=== PATIENT | male | born 1940 | race Two or more races ===

== ENCOUNTER → 2024-10-11 | Outpatient (CLI) | payer MEDICARE, MEDICAID, SELFPAY ==
--- NOTE | 2024-10-11 08:00 | XR_ITS ---
EXAMINATION: PET/CT FUSION SKULL TO THIGH EXAM DATE AND TIME: October 11, 2024 0848 hrs. Comparison March 11, 2024 Indications: Diagnosis prostate cancer post treatment restaging CTDI:vol (mGy) 7.56 DLP: (mGycm) 690.27 PROCEDURE: 15.97 mCi FDG was administered intravenously To allow for distribution and uptake of radiotracer, the patient was allowed to rest quietly in a shielded room. Imaging was performed on an integrated 16-slice PET/CT scanner, with scanning from the skull base to the mid thigh. Serum blood glucose at the time of the injection was measured 129 mg/dL. CT scanning was performed without oral or intravenous contrast material. FINDINGS: Head and Neck: There is no hang hypermetabolism in the neck. The visualized portions of the brain are normal in appearance on CT. Chest: There is no hang hypermetabolism in the chest. There are no pulmonary nodules. Abdomen and Pelvis: Hypermetabolic 16mm left common iliac lymph node Hypermetabolic 27 mm left common iliac lymph node Right urostomy Musculoskeletal: Marrow uptake is within normal range. IMPRESSION: No current mediastinal hypermetabolic lymphadenopathy Enlarging hypermetabolic left common iliac lymph nodes compared with March 11, 2024
[2024-10-11 10:47] LABS: Basophils % (Auto) 1 % (0-2.5); Eosinophils # (Auto) 0.2 Thou/mm3 (0.0-0.5); Eosinophils % (Auto) 2 % (0-10); Hematocrit 41.4 % (41.0-53.0); Hemoglobin 13.6 g/dL (13.5-16.0); Immature Granulocytes % (Auto) 0 % (0-0); Immature Granulocytes Auto 0.02 Thou/mm3 (0.00-0.00); Lymphocytes # (Auto) 2.8 Thou/mm3 (1.0-4.8); Lymphocytes % (Auto) 33 % (10-50); Mean Corpuscular HGB Conc 32.9 g/dl (31.0-37.0); Mean Corpuscular Hemoglobin 27.4 pg (25.0-35.0); Mean Corpuscular Volume 84 fL (80-100); Monocytes # (Auto) 0.5 Thou/mm3 (0.0-0.8); Monocytes % (Auto) 6 % (0-12); Neutrophils # (Auto) 4.9 Thou/mm3 (1.8-7.7); Neutrophils % (Auto) 58 % (37-80); Nucleated Red Blood Cell % 0 /100 WBC (0); Platelet Count 277 Thou/mm3 (140-440); RDW Standard Deviation 42.8 fL (35.1-43.9); Red Blood Count 4.96 Miln/mm3 (4.50-5.90); White Blood Count 8.4 Thou/mm3 (3.8-10.6)
[2024-10-11 10:54] LABS: Prostate Specific Antigen < 0.10 ng/mL (0-4.00)
[2024-10-11 10:57] LABS: Alanine Aminotransferase 23 U/L (10-49); Albumin, Serum 4.5 gm/dL (3.4-4.8); Albumin/Globulin Ratio 1.6 (1.2-2.2); Alkaline Phosphatase 117 U/L (46-116); Anion Gap 6 (7-16); Aspartate Amino Transferase 21 U/L (0-34); BUN/Creatinine Ratio 20 Ratio (12-20); Bilirubin,Total 0.6 mg/dL (0.3-1.2); Blood Urea Nitrogen 24 mg/dL (9-23); Calcium 9.3 mg/dL (8.3-10.6); Calcium (Corrected) 9.3 mg/dL (8.5-10.1); Chloride 104 mMol/L (98-107); Creatinine (Component) 1.2 mg/dL (0.6-1.3); Globulin 2.9 gm/dL (2.3-3.5); Glucose 110 mg/dL (74-106); Osmolality,Calculated 289 (275-295); Potassium 4.3 mMol/L (3.4-5.1); Sodium 143 mMol/L (136-145); Total Protein 7.4 gm/dL (5.7-8.2); eGFR 59 See Note
== END | disposition home or self-care (01) ==
LOC: CDIM 07:57 → COPL 09:24 → SCTO 09:24
PROVIDERS: PCP Nurse Practitioner; Referring Provider Internal Medicine Hematology & Oncology; Visit Provider Radiology Diagnostic Radiology
DX: R59.0 Localized enlarged lymph nodes (principal); C61 Malignant neoplasm of prostate
CPT/HCPCS: 36415; 78815; 80053; 84153; 85025; A9552

== ENCOUNTER 2024-10-12 10:15 | Outpatient (RCR) | payer MEDICARE, MEDICAID, SELFPAY ==
--- NOTE | 2024-10-18 09:09 | CTCFLWUP_ITS ---
Patient: THEODORE TORRES : 1940 Page 9 of 11 FOLLOW UP NOTE DATE OF SERVICE: 10/12/2024 NAME: THEODORE TORRES ACCOUNT: [id number] : 1940 AGE: 84 INTERVAL HISTORY: ONCOLOGY HISTORY: DIAGNOSIS: Malignant neoplasm of prostate [ICD10] C61 High-grade, T1, invasive papillary urothelial carcinoma, non-muscle invasie. S/p TURBT and partial resection (05/22/2022) History of Yasmin score 6 prostatic adenocarcinoma (03/07/2014). S/p radiation therapy to the prostate (04/19/2014 - 06/13/2014) Mr. Torres had 7200 cGy radiation therapy in 40 fractions. No history of cigarette smoking or alcohol abuse. DATE OF DIAGNOSIS: 05/22/2022 STAGE/TNM: Stage 1 [id number] TREATMENT HISTORY: Care?Plan Start?Date Cycle Day Intent Pembrolizumab?alone 09/04/2022 1 21 Palliative HISTORY OF PRESENT ILLNESS: Theodore Torres is a 84-year-old S[place] speaking male with history of hypertension has the following oncology history. 04/04/2022: Mr. Torres had urinalysis which showed 3+ hematuria. Cytology showed many malignant cells. 05/06/2022: Patient had cystoscopy. Large papillary left lateral and posterior bladder wall tumor was noted. 05/22/2022: TURBT?again a large tumor was noted in the bladder. A large part of the tumor was resected out. However complete resection was not possible. 07/16/2022: MRI of the abdomen and pelvis with and without contrast? 04/09/2023: Patient had cystectomy done at [facility]. 04/25/2023: Mr. Torres had CT angiogram for shortness of breath. He did not show any pulmonary embolism. However it did show fluid collection adjacent to esophagus versus a paraesophageal lymph node. 08/04/2023: CT scan of the abdomen and pelvis with contrast 09/25/2023: PET/CT scan 10/08/2023: CT scan of the abdomen and pelvis with IV contrast 02/16/2024: CT scan of the chest abdomen and pelvis with IV contrast 02/16/2024: CT scan of the chest abdomen and pelvis with IV contrast 03/11/2024: PET/CT scan 04/13/2024: CT-guided biopsy of the left common iliac lymph node? OTHER MEDICAL HISTORY/CONDITIONS: HTN Hyperlipidemia Prostate cancer- dx 2013 Bladder cancer - 2021 Ureteral dilitation; transuretheral resection of bladder tumor - 05/22/2022 Biopsy bladder tumor - 05/07/2022 Gray cataract surgery - 2018 Cholecyctectomy - 2013 Left rotator cuff repair - 18ys ago Umbilical hernia repair - 2007 Left rotator cuff repair - 18ys ago FAMILY HISTORY: Patient?denies?family?cancer?history. 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 Tobacco?Use:?Denies ETOH?Use:?Denies Drug?Note:?Denies Social History Note:?Lives with and dtr MEDICATIONS: 1. aspirin - 81 mg 1 tab Daily 2. Brilinta - 90 mg 1 tab Twice a Day 3. bumetanide - 0.5 mg 1 tab Daily 4. carvedilol - 3.125 mg 1 tab Twice a Day 5. ezetimibe - 10 mg 1 tab Daily 6. Lax Stool Softener With Senna - 8.6-50 mg 2 tab 2 tabs nightly to keep regular 7. magnesium citrate - 100 mL Daily 8. pantoprazole - 40 mg 1 Daily Medications Last Reconciled by Diana Dasilva MA on 10/12/2024 ALLERGIES: Penicillins; codeine sulfate REVIEW OF SYSTEMS: A complete 14-point review of systems was performed and is negative except as noted in interval history. PHYSICAL EXAMINATION: VITAL SIGNS: Temperature?98.9, B/P?130/67, Oxygen?Saturation?93% Weight?171?lbs PAIN: 0 - No pain GENERAL APPEARANCE: Appears well, in no apparent distress, appropriately interactive. HEENT: Normocephalic, no temporal wasting, normal conjunctiva, no scleral icterus, normal hearing, lips without lesions, neck normal range of motion. CARDIOVASCULAR: Not assessed. PULMONARY: Normal respiratory effort, no respiratory distress or use of accessory muscles, speaking in full sentences, no tachypnea. EXTREMITIES: No pedal edema or cyanosis. SKIN: Normal skin appearance. NEUROLOGIC: Alert and oriented x4. PSHYCHIATRIC: Appropriate affect, mood normal, behavior normal, intact thought and speech. LABORATORY DATA: I have personally reviewed and interpreted each of the patient?s relevant lab tests, abnormal findings are below: Date 10/11/24 ??GLUCOSE,RANDOM?(mg/dL) 110?H ??BLOOD?UREA?NITROGEN?(mg/dL) 24?H ??CREATININE?(mg/dL) 1.20 ??SODIUM?(mmol/L) 143 ??POTASSIUM?(mmol/L) 4.3 ??CHLORIDE?(mmol/L) 104 ??CrCl?(CandG)?(ml/min) 48.19 ??AST/SGOT?(Unit/L) 21 ??ALT/SGPT?(Unit/L) 23 ??ALKALINE?PHOSPHATASE?(Unit/L) 117?H ??BILIRUBIN,?TOTAL?(mg/dL) 0.6 ??PROTEIN?TOTAL?(gm/dl) 7.4 ??ALBUMIN,?SERUM?(gm/dl) 4.5 ??GLOBULIN?(gm/dl) 2.9 ??ALBUMIN/GLOBULIN?RATIO 1.6 ??CALCIUM,?SERUM?(mg/dL) 9.3 ??CALCIUM?SERUM?(CORRECTED)?(mg/dL) 9.3 ASSESSMENT/PLAN: 1. Biopsy of the left common iliac lymph node is nondiagnostic as documented above. 2. PET/CT scan done on 03/11/2024 showed no significant change in the hypermetabolic hilar and left common iliac lymphadenopathy compared to September 25, [address] scan of the chest abdomen pelvis done on 02/16/2024 showed left lateral para-aortic lymphadenopathy as documented above. 4. Biopsy of the abdominal lymph nodes was not done previously, because the CT scan done (10/08/2023) prior to the biopsy was negative for any lymphadenopathy. 5. Recent PET/CT scan (09/25/2023) showed hypermetabolic left common iliac and left internal iliac lymphadenopathy. 09/2024 SCAN ALSO SHOWS ENLARGING LEFT pelvic lymph node 6. Mr. Torres had robotic radical cystectomy/cystoprostatectomy, bilateral on 04/09/2023. Surgical pathology specimen did not show any residual tumor (ypT0 N0). Benign prostatic hyperplasia was noted. 7. Patient had cystectomy done at [facility] on 04/09/2023. 8. Stage I high-grade, T1, invasive papillary urothelial carcinoma with invasion of lamina propria (Non muscle invasive bladder cancer) (05/22/2022). 9. S/p neoadjuvant pembrolizumab (09/04/2022 - 03/13/2023) 10. MRI of the abdomen and pelvis with and without contrast is negative for lymphadenopathy or extravesicular disease. 11. S/p TURBT and partial resection (05/22/2022) 12. History of Camby score 6 prostatic adenocarcinoma (03/07/2014). 13. S/p radiation therapy to the prostate (04/19/2014 - 06/13/2014) 14. Mr. Torres had 7200 cGy radiation therapy in 40 fractions. 15. No history of cigarette smoking or alcohol abuse. 16. Hypertension Mri abdomen and pelvis with contrast to evaluate for left lymph node and will order biopsy if neeed . ORDERS: Mri pelvis RETURN TO CLINIC: 4 weeks BILLING AND COMPLIANCE: I reviewed external records from providers outside my specialty as summarized above. I spent a total of 50 minutes on this patient?s care on the day of their visit excluding time spent related to any billed procedures. This time includes time spent with the patient as well as time spent documenting in the medical record, reviewing patients records and tests, obtaining history, placing orders, communicating with other healthcare professionals, counseling the patient, family or caregiver, and/or care coordination for the diagnoses above. Electronically Signed by: Rudy Mackay MD T: 9:06 AM CC: Carlos? PCP: Rudy Mackay Referring: Rudy Mackay This document was completed utilizing speech recognition software. Grammatical errors, random word insertions, pronoun errors, and incomplete sentences are an occasional consequence of this system due to software limitations, ambient noise, and hardware issues. Any formal questions or concerns about the content, text or information contained within the body of this dictation should be directly addressed to the provider for clarification.
== END 2024-10-15 23:59 | disposition home or self-care (01) ==
LOC: SCTC 10:15
PROVIDERS: PCP Nurse Practitioner; Referring Provider Internal Medicine Hematology & Oncology; Visit Provider Internal Medicine Hematology & Oncology
DX: R59.0 Localized enlarged lymph nodes (principal); C67.9 Malignant neoplasm of bladder, unspecified; Z85.46 Personal history of malignant neoplasm of prostate; N40.0 Benign prostatic hyperplasia without lower urinary tract symptoms; Z92.21 Personal history of antineoplastic chemotherapy; Z92.3 Personal history of irradiation; I10 Essential (primary) hypertension
CPT/HCPCS: 99212; G0463

== ENCOUNTER → 2024-10-26 | Outpatient (BNVA) | payer MEDICARE, MEDICAID, SELFPAY | END | disposition home or self-care (01) | PROVIDERS: PCP Nurse Practitioner; Referring Provider Nurse Practitioner; Visit Provider Urology | DX: C67.9 Malignant neoplasm of bladder, unspecified (principal); N40.0 Benign prostatic hyperplasia without lower urinary tract symptoms; Z92.21 Personal history of antineoplastic chemotherapy; I10 Essential (primary) hypertension; E78.00 Pure hypercholesterolemia, unspecified | CPT/HCPCS: 99212; G0463 ==

== ENCOUNTER → 2024-12-01 | Outpatient (CLI) | payer MEDICARE, MEDICAID, SELFPAY ==
[2024-12-01 11:32] LABS: Basophils % (Auto) 1 % (0-2.5); Eosinophils # (Auto) 0.2 Thou/mm3 (0.0-0.5); Eosinophils % (Auto) 3 % (0-10); Hematocrit 40.9 % (41.0-53.0); Hemoglobin 13.2 g/dL (13.5-16.0); Immature Granulocytes % (Auto) 0 % (0-0); Immature Granulocytes Auto 0.02 Thou/mm3 (0.00-0.00); Lymphocytes # (Auto) 2.4 Thou/mm3 (1.0-4.8); Lymphocytes % (Auto) 37 % (10-50); Mean Corpuscular HGB Conc 32.3 g/dl (31.0-37.0); Mean Corpuscular Hemoglobin 27.7 pg (25.0-35.0); Mean Corpuscular Volume 86 fL (80-100); Monocytes # (Auto) 0.6 Thou/mm3 (0.0-0.8); Monocytes % (Auto) 8 % (0-12); Neutrophils # (Auto) 3.4 Thou/mm3 (1.8-7.7); Neutrophils % (Auto) 51 % (37-80); Nucleated Red Blood Cell % 0 /100 WBC (0); Platelet Count 264 Thou/mm3 (140-440); RDW Standard Deviation 42.5 fL (35.1-43.9); Red Blood Count 4.77 Miln/mm3 (4.50-5.90); White Blood Count 6.6 Thou/mm3 (3.8-10.6)
[2024-12-01 11:50] LABS: Carcinoembryonic Antigen 2.1 ng/mL (0.0-5.0)
[2024-12-01 11:52] LABS: Alanine Aminotransferase 16 U/L (10-49); Albumin, Serum 4.3 gm/dL (3.4-4.8); Albumin/Globulin Ratio 1.5 (1.2-2.2); Alkaline Phosphatase 109 U/L (46-116); Anion Gap 6 (7-16); Aspartate Amino Transferase 22 U/L (0-34); BUN/Creatinine Ratio 17 Ratio (12-20); Bilirubin,Total 0.6 mg/dL (0.3-1.2); Blood Urea Nitrogen 22 mg/dL (9-23); Calcium 9.3 mg/dL (8.3-10.6); Calcium (Corrected) 9.3 mg/dL (8.5-10.1); Chloride 104 mMol/L (98-107); Creatinine (Component) 1.3 mg/dL (0.6-1.3); Globulin 2.8 gm/dL (2.3-3.5); Glucose 102 mg/dL (74-106); Osmolality,Calculated 282 (275-295); Potassium 4.7 mMol/L (3.4-5.1); Sodium 140 mMol/L (136-145); Total Protein 7.1 gm/dL (5.7-8.2); eGFR 54 See Note
== END | disposition home or self-care (01) ==
LOC: SCTO 10:04
PROVIDERS: PCP Nurse Practitioner; Referring Provider Internal Medicine Hematology & Oncology; Visit Provider Internal Medicine Hematology & Oncology
DX: C61 Malignant neoplasm of prostate (principal)
CPT/HCPCS: 36415; 80053; 82378; 85025

== ENCOUNTER → 2024-12-03 | Outpatient (CLI) | payer MEDICARE, MEDICAID, SELFPAY ==
[2024-12-03 10:54] LABS: Anion Gap 3 (7-16); BUN/Creatinine Ratio 17 Ratio (12-20); Blood Urea Nitrogen 22 mg/dL (9-23); Calcium 9.5 mg/dL (8.3-10.6); Carbon Dioxide 33.8 mMol/L (20.0-31.0); Chloride 106 mMol/L (98-107); Creatinine (Component) 1.3 mg/dL (0.6-1.3); Glucose 119 mg/dL (74-106); Osmolality,Calculated 289 (275-295); Potassium 4.5 mMol/L (3.4-5.1); Sodium 143 mMol/L (136-145); eGFR 54 See Note
== END | disposition home or self-care (01) ==
PROVIDERS: PCP Nurse Practitioner; Referring Provider Urology; Visit Provider Urology
DX: C67.9 Malignant neoplasm of bladder, unspecified (principal)
CPT/HCPCS: 36415; 80048

== ENCOUNTER → 2024-12-03 | Outpatient (CLI) | payer MEDICARE, MEDICAID, SELFPAY ==
--- NOTE | 2024-12-03 07:00 | XR_ITS ---
Examination: MRI abdomen abdomen with intravenous contrast. MRI pelvis without intravenous contrast. Date and time of exam: December 03, 2024 0715 hours Comparison PET/CT scan October 11, 2024, CT chest abdomen pelvis February 16, 2024, MRI abdomen July 16, 2022 INDICATIONS: Diagnosis malignant neoplasm prostate, status post bladder prostate removal April 09, 2023, with persistent abdominal pain, left lateral para-aortic lymph nodes, the largest 15 mm, left common iliac lymph nodes the largest 18 mm Technique: Multiple axial, sagittal and coronal sections of the abdomen obtained. Transverse images, TR 6020, TE 107. T1 weighted transverse images, TR 582, TE 9.5. T2-weighted sagittal images, TR 4000, TE 105. T2-weighted sagittal images, TR 4000, TE 5. Coronal images, TR 4210, TE 107. Axial and coronal images are obtained post 19 cc intravenous injection, gadolinium. Findings: No focal liver lesions Absent gallbladder No extrahepatic biliary tract dilatation Spleen is not enlarged No pancreatic mass, no dilated pancreatic duct or peripancreatic edema Normal adrenal glands No hydronephrosis Axial image 17 demonstrates 17 mm retroaortic lymph node not seen on the MRI July 16, 2022 13 mm left lateral periaortic lymph node not seen on the MRI abdomen July 16, 2022 IMPRESSION: 17 mm retroaortic lymph node not seen on the MRI abdomen July 06, 2022 13 mm left lateral periaortic lymph node, not seen on the MRI abdomen July 16, 2022
--- NOTE | 2024-12-03 08:00 | XR_ITS ---
Examination: MRI pelvis with intravenous contrast. MRI pelvis without intravenous contrast. Date and time of exam: December 03, 2024 0714 hours Comparison MRI pelvis July 16, 2022, PET/CT scan October 11, 2024, CT abdomen October 08, 2023 INDICATIONS: Diagnosis malignant neoplasm prostate, status post removal prostate bladder April 09, 2023, restaging Technique: Multiple axial, sagittal and coronal sections of the pelvis obtained. Transverse images, TR 6020, TE 107. T1 weighted transverse images, TR 582, TE 9.5. T2-weighted sagittal images, TR 4000, TE 105. T2-weighted sagittal images, TR 4000, TE 5. Coronal images, TR 4210, TE 107. Axial and coronal images are obtained post 19 cc intravenous injection, gadolinium. Findings: 16mm, 14 mm left common iliac lymph nodes, not visualized on the MRI pelvis July 16, 2022 Prostate tissue not clearly visualized No free fluid in the pelvis Homogeneous marrow signal No presacral mass Bladder intact IMPRESSION: 16 mm, 14 mm left common iliac lymph nodes, not visualized on the MRI pelvis to confirm and 07/05/2022
== END | disposition home or self-care (01) ==
PROVIDERS: PCP Nurse Practitioner; Referring Provider Internal Medicine Hematology & Oncology; Visit Provider Internal Medicine Hematology & Oncology
DX: R10.9 Unspecified abdominal pain (principal); C61 Malignant neoplasm of prostate
CPT/HCPCS: 72197; 74183; A9579

== ENCOUNTER → 2024-12-13 | Outpatient (CLI) | payer MEDICARE, MEDICAID, SELFPAY ==
--- NOTE | 2024-12-13 14:30 | XR_ITS ---
Examination: CT abdomen with intravenous contrast CT pelvis with intravenous contrast 2-D coronal reconstructions 2-D sagittal reconstructions Date and time of exam:December 05, [address] chest abdomen pelvis February 16, 2024 INDICATIONS: Diagnosis bladder cancer 2 years ago with lymphadenopathy on CT abdomen pelvis February 16, 2024, restaging, diarrhea. CTDI: vol (mGy) 14 DLP: (mGycm) 839 Technique: Multiple axial sections of the abdomen and pelvis have been obtained. 64 slice high-resolution scanner used. 3 mm axial sections have been obtained, post intravenous injection 60 cc [id number] 2-D sagittal, coronal reconstructions obtained. Low dose protocols were performed. One or more of the following dose reduction techniques were used; automated exposure control, adjustment of the mA and/or KV according to patient size, use of iterative reconstruction technique. Findings: No focal liver or splenic lesions Absent gallbladder No pancreatic or adrenal mass Moderate renal parenchymal scar formation Mild left hydronephrosis Diverting urostomy Retroaortic lymph node, 17 mm, visualized on the MR abdomen December 03, 2024 No bowel obstruction Aorta normal size Enlarging multiple left common iliac lymph nodes, 21 mm, 12 mm, 24 mm Fat-containing right inguinal hernia IMPRESSION: Interval progression of retroaortic and left pelvic metastatic lymphadenopathy, consider PET CT scan follow-up
== END | disposition home or self-care (01) ==
PROVIDERS: Referring Provider Urology; Visit Provider Urology
DX: C77.9 Secondary and unspecified malignant neoplasm of lymph node, unspecified (principal); C77.5 Secondary and unspecified malignant neoplasm of intrapelvic lymph nodes
CPT/HCPCS: 74177; A4649; Q9967

== ENCOUNTER 2024-12-15 11:28 | Outpatient (RCR) | payer MEDICARE, MEDICAID, SELFPAY ==
--- NOTE | 2024-12-21 11:17 | CTCFLWUP_ITS ---
Patient: THEODORE TORRES : 1940 Page 2 of 2 FOLLOW UP NOTE DATE OF SERVICE: 12/15/2024 NAME: THEODORE TORRES ACCOUNT: [id number] : 1940 AGE: 84 INTERVAL HISTORY: Theodore, a male with facial weakness, has a history of prostate cancer (2013) and bladder cancer (2021). He presents with unilateral facial drooping, incomplete eye closure, and mild left hand weakness. Recent imaging revealed new retroaortic (17mm), periaortic (13mm), and left common iliac lymph nodes (16mm, 14mm) not present on 2021 scans. Assessment suggests possible stroke rather than Barrera's palsy. Plan includes MRI brain, neurology and ophthalmology referrals, eye protection measures, lymph node monitoring, and urinalysis to screen for cancer recurrence. Patient takes baby aspirin. Chief Complaint Facial weakness, drooping of the face History of Present Illness Theodore Ward, a male patient with a history of prostate cancer in 2013 and bladder cancer in 2021, presents for follow-up. The patient's daughter reports that he has been experiencing facial weakness, which has been present for an unspecified duration. 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 The patient's facial weakness is characterized by drooping on one side of the face and difficulty closing the eye on the affected side. This has led to concerns about potential corneal exposure and dryness, especially during sleep. The patient's daughter notes that his eyes do close at night, but the clinician expresses concern that the closure may not be complete due to weakness. The patient is also experiencing increased tearing in the affected eye. Mr. Ward's daughter reports that his blood pressure has been well- controlled, with recent readings around 111 mmHg and typically ranging between 120-130 mmHg. The patient is described as pre-diabetic and is currently taking baby aspirin. He is not reported to be experiencing any other new symptoms or health concerns at this time. Medical History - Facial weakness (right side) - Pre-diabetes - Bladder cancer (high-grade) - Prostate cancer (low-grade, diagnosed in 2013) Surgical History - Bladder removal with prostate removal in 2021 for high-grade bladder cancer - Prostate biopsy in 2013, showing low-grade prostate cancer (Ivanhoe 6) - Radiation therapy for prostate cancer in 2008 Vital Signs - Blood Pressure: 111 mmHg (systolic) Physical Examination HEENT: Facial weakness noted. Right eye unable to close fully. Left eye watering. Corneal exposure on right side due to incomplete eye closure. Neurological: Mild weakness in left hand observed. Patient able to squeeze fingers bilaterally, but noted to be weaker on left side. Unable to fully close right eye when instructed to close eyes tightly. Laboratory, Imaging, and Diagnostic Test Results - MRI Abdomen (12/03/2024): - No focal liver lesions - Absent gallbladder - No pancreatic mass - No hydronephrosis - 17 mm retroaortic lymph node - 13 mm left lateral periaortic lymph node - MRI Pelvis (12/03/2024): - 16 mm left common iliac lymph node - 14 mm left common iliac lymph node - PET CT scan (10/11/2024): - No current mediastinal hypermetabolic lymphadenopathy - 16 mm left common iliac lymph node - 27 mm left common iliac lymph node - CT scan (February-March 2024): - Left common iliac lymph node identified and biopsied (non-diagnostic) - Previous MRI Abdomen (07/16/2022): - No retroaortic or left lateral periaortic lymph nodes noted - Previous MRI Pelvis (07/16/2022): - No left common iliac lymph nodes noted - Prostate biopsy (2013): - Left lobe: 6 out of 10 positive (low-grade prostate cancer) Medications and Supplements - Baby aspirin Social History - Living Situation: Lives with family (daughter present during visit) - Language: Patient speaks Telugu, no semi driver needed Review of Systems HEENT: Positive for watery eye. Neurological: Positive for facial weakness, mild weakness in right-left hand. ONCOLOGY HISTORY: DIAGNOSIS: Malignant neoplasm of prostate [ICD10] C61 High-grade, T1, invasive papillary urothelial carcinoma, non-muscle invasie. S/p TURBT and partial resection (05/22/2022) History of Yasmin score 6 prostatic adenocarcinoma (03/07/2014). S/p radiation therapy to the prostate (04/19/2014 - 06/13/2014) Mr. Torres had 7200 cGy radiation therapy in 40 fractions. No history of cigarette smoking or alcohol abuse. DATE OF DIAGNOSIS: 05/22/2022 STAGE/TNM: Stage 1 [id number] TREATMENT HISTORY: Care?Plan Start?Date Cycle Day Intent Pembrolizumab?alone 09/04/2022 1 21 Palliative HISTORY OF PRESENT ILLNESS: Theodore Torres is a 84-year-old SPA speaking male with history of hypertension has the following oncology history. 04/04/2022: Mr. Torres had urinalysis which showed 3+ hematuria. Cytology showed many malignant cells. 05/06/2022: Patient had cystoscopy. Large papillary left lateral and posterior bladder wall tumor was noted. 05/22/2022: TURBT?again a large tumor was noted in the bladder. A large part of the tumor was resected out. However complete resection was not possible. 07/16/2022: MRI of the abdomen and pelvis with and without contrast? 04/09/2023: Patient had cystectomy done at [facility]. 04/25/2023: Mr. Torres had CT angiogram for shortness of breath. He did not show any pulmonary embolism. However it did show fluid collection adjacent to esophagus versus a paraesophageal lymph node. 08/04/2023: CT scan of the abdomen and pelvis with contrast 09/25/2023: PET/CT scan 10/08/2023: CT scan of the abdomen and pelvis with IV contrast 02/16/2024: CT scan of the chest abdomen and pelvis with IV contrast 02/16/2024: CT scan of the chest abdomen and pelvis with IV contrast 03/11/2024: PET/CT scan 04/13/2024: CT-guided biopsy of the left common iliac lymph node? OTHER MEDICAL HISTORY/CONDITIONS: HTN Hyperlipidemia Prostate cancer- dx 2013 Bladder cancer - 2021 Ureteral dilitation; transuretheral resection of bladder tumor - 05/22/2022 Biopsy bladder tumor - 05/07/2022 Gray cataract surgery - 2019 Cholecyctectomy - 2013 Left rotator cuff repair - 18ys ago Umbilical hernia repair - 2007 Left rotator cuff repair - 18ys ago FAMILY HISTORY: Patient?denies?family?cancer?history. 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 Tobacco?Use:?Denies ETOH?Use:?Denies Drug?Note:?Denies Social History Note:?Lives with and dtr MEDICATIONS: 1. aspirin - 81 mg 1 tab Daily 2. Brilinta - 90 mg 1 tab Twice a Day 3. bumetanide - 0.5 mg 1 tab Daily 4. carvedilol - 3.125 mg 1 tab Twice a Day 5. ezetimibe - 10 mg 1 tab Daily 6. Lax Stool Softener With Senna - 8.6-50 mg 2 tab 2 tabs nightly to keep regular 7. magnesium citrate - 100 mL Daily 8. pantoprazole - 40 mg 1 Daily Medications Last Reconciled by Farzana Harris MA on 12/15/2024 ALLERGIES: Penicillins; codeine sulfate REVIEW OF SYSTEMS: A complete 14-point review of systems was performed and is negative except as noted in interval history. PHYSICAL EXAMINATION: VITAL SIGNS: Temperature?98, B/P?111/67, Oxygen?Saturation?95% Weight?161?lbs PAIN: 0 - No pain ECOG Performance Status: 0 - Asymptomatic and fully active GENERAL APPEARANCE: Appears well, in no apparent distress, appropriately interactive. HEENT: Normocephalic, no temporal wasting, normal conjunctiva, no scleral icterus, normal hearing, lips without lesions, neck normal range of motion. CARDIOVASCULAR: Not assessed. PULMONARY: Normal respiratory effort, no respiratory distress or use of accessory muscles, speaking in full sentences, no tachypnea. EXTREMITIES: No pedal edema or cyanosis. SKIN: Normal skin appearance. NEUROLOGIC: Alert and oriented x4. PSHYCHIATRIC: Appropriate affect, mood normal, behavior normal, intact thought and speech. LABORATORY DATA: I have personally reviewed and interpreted each of the patient?s relevant lab tests, abnormal findings are below: Date 12/01/24 12/03/24 ??WHITE?BLOOD?COUNT?(Thou/mm3) 6.6 ? ??RED?BLOOD?COUNT?(Miln/mm3) 4.77 ? ??HEMOGLOBIN?(gm/dl) 13.2?L ? ??HEMATOCRIT?(%) 40.9?L ? ??PLATELET?COUNT?(Thou/mm3) 264 ? ??NEUTROPHILS?%,?AUTO?(%) 51 ? ??LYMPH?%,?AUTO?(%) 37 ? ??NEUTROPHILS,?AUTO?(Thou/mm3) 3.4 ? ??GLUCOSE,RANDOM?(mg/dL) 102 119?H ??BLOOD?UREA?NITROGEN?(mg/dL) 22 22 ??CREATININE?(mg/dL) 1.30 1.30 ??SODIUM?(mmol/L) 140 143 ??POTASSIUM?(mmol/L) 4.7 4.5 ??CHLORIDE?(mmol/L) 104 106 ??CrCl?(CandG)?(ml/min) 44.75 44.75 ??AST/SGOT?(Unit/L) 22 ? ??ALT/SGPT?(Unit/L) 16 ? ??ALKALINE?PHOSPHATASE?(Unit/L) 109 ? ??BILIRUBIN,?TOTAL?(mg/dL) 0.6 ? ??PROTEIN?TOTAL?(gm/dl) 7.1 ? ??ALBUMIN,?SERUM?(gm/dl) 4.3 ? ??GLOBULIN?(gm/dl) 2.8 ? ??ALBUMIN/GLOBULIN?RATIO 1.5 ? ??CALCIUM,?SERUM?(mg/dL) 9.3 9.5 ??CALCIUM?SERUM?(CORRECTED)?(mg/dL) 9.3 ? ??CEA?(O*)?(ng/ml) 2.1 ? ASSESSMENT/PLAN: Mr. Torres had robotic radical cystectomy/cystoprostatectomy, bilateral on 04/09/2023. Surgical pathology specimen did not show any residual tumor (ypT0 N0). Benign prostatic hyperplasia was noted. Patient had cystectomy done at [facility] on 04/09/2023. Stage I high-grade, T1, invasive papillary urothelial carcinoma with invasion of lamina propria (Non muscle invasive bladder cancer) (05/22/2022). S/p neoadjuvant pembrolizumab (09/04/2022 - 03/13/2023) MRI of the abdomen and pelvis with and without contrast is negative for lymphadenopathy or extravesicular disease. S/p TURBT and partial resection (05/22/2022) History of Ivanhoe score 6 prostatic adenocarcinoma (03/07/2014). S/p radiation therapy to the prostate (04/19/2014 - 06/13/2014) Mr. Torres had 7200 cGy radiation therapy in 40 fractions. No history of cigarette smoking or alcohol abuse. Hypertension Theodore Ward, male patient with history of bladder cancer and prostate cancer, presenting with facial weakness and mild right hand weakness. Facial weakness and right hand weakness Assessment: Patient presents with facial drooping and mild weakness in the right hand. 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 Patient unable to fully close the affected eye, which puts him at risk for corneal exposure and drying. The weakness appears to be unilateral, affecting the right side of the face and right hand. Blood pressure today is 111, with recent readings in the 120-130 range. Patient is pre-diabetic and on baby aspirin. Plan: - Order MRI brain to confirm stroke diagnosis - Refer to neurology for further evaluation and management - Refer to ophthalmology for assessment of eye closure and corneal protection - Recommend eye patch for nighttime use to protect the affected eye - Educate patient on the importance of lubricating eye drops or ointment - Consider physical therapy if diagnosis confirmed as Barrera's palsy - Consider steroid treatment if Barrera's palsy is diagnosed and patient presents early in the course History of bladder cancer status post cystectomy Assessment: Patient has a history of high-grade bladder cancer, status post cystectomy with prostatectomy in 2021. Recent imaging studies show new lymph nodes not present on previous scans. MRI on 12/03/2024 revealed a 17mm retroaortic lymph node and a 13mm left lateral periaortic lymph node. MRI pelvis showed 16mm and 14mm left common iliac lymph nodes. PET CT scan on 10/11/2024 confirmed hypermetabolic left common iliac lymph nodes. A previous biopsy of a left common iliac lymph node was non-diagnostic. Given the patient's history of two cancers, there is concern for recurrence, but the small size of the lymph nodes and previous non-diagnostic biopsy make further invasive testing challenging. Plan: - Monitor lymph nodes with serial imaging - Perform urinalysis to screen for early signs of cancer recurrence - Consider blood test to detect circulating tumor cells - Avoid biopsy at this time due to small size of lymph nodes and risk of non- diagnostic results - Continue regular follow-up for cancer surveillance History of prostate cancer Assessment: Patient has a history of prostate cancer diagnosed in 2013, initially low-grade (Yasmin 6) in the left lobe. Patient received radiation therapy. During cystectomy for bladder cancer in 2021, the prostate was also removed and found to be negative for cancer at that time. Plan: - Continue monitoring as part of overall cancer surveillance - No specific interventions required at this time for prostate cancer given negative findings at time of prostatectomy Mri abdomen and pelvis with contrast to evaluate for left lymph node and will order biopsy if neeed . RETURN TO CLINIC: BILLING AND COMPLIANCE: I reviewed external records from providers outside my specialty as summarized above. I spent a total of 50 minutes on this patient?s care on the day of their visit excluding time spent related to any billed procedures. This time includes time spent with the patient as well as time spent documenting in the medical record, reviewing patients records and tests, obtaining history, placing orders, communicating with other healthcare professionals, counseling the patient, family or caregiver, and/or care coordination for the diagnoses above. Electronically Signed by: Rudy Mackay MD T: 11:15 AM CC: Carlos? PCP: Tyesha Pastrana Referring: Tyesha Pastrana This document was completed utilizing speech recognition software. Grammatical errors, random word insertions, pronoun errors, and incomplete sentences are an occasional consequence of this system due to software limitations, ambient noise, and hardware issues. Any formal questions or concerns about the content, text or information contained within the body of this dictation should be directly addressed to the provider for clarification.
== END 2024-12-15 23:59 | disposition home or self-care (01) ==
LOC: SCTC 11:28
PROVIDERS: PCP Nurse Practitioner; Referring Provider Nurse Practitioner; Visit Provider Internal Medicine Hematology & Oncology
DX: Z08 Encounter for follow-up examination after completed treatment for malignant neoplasm (principal); Z85.46 Personal history of malignant neoplasm of prostate; Z85.51 Personal history of malignant neoplasm of bladder; R29.810 Facial weakness; R59.1 Generalized enlarged lymph nodes; N40.0 Benign prostatic hyperplasia without lower urinary tract symptoms; Z90.6 Acquired absence of other parts of urinary tract; Z92.21 Personal history of antineoplastic chemotherapy; Z92.3 Personal history of irradiation; Z79.82 Long term (current) use of aspirin; Z90.79 Acquired absence of other genital organ(s)
CPT/HCPCS: 99212; G0463

== ENCOUNTER → 2024-12-30 | Outpatient (CLI) | payer MEDICARE, MEDICAID, SELFPAY ==
--- NOTE | 2024-12-30 16:45 | XR_ITS ---
Examination: MRI brain with intravenous contrast TECHNIQUE: Multiple axial sagittal coronal MR brain images post intravenous administration 15 cc gadolinium Date and time: December 30, [address] abdomen and pelvis December 13, 2024, MR pelvis December 03, 2024, PET CT scan October 11, 2024 INDICATIONS: Diagnosis malignant neoplasm prostate, headaches for years worse over the last 5 months FINDINGS: Ventricles are normal in size and configuration. No mass effect upon the ventricular system. No effacement cortical sulcal markings. Mild bilateral mastoid enhancement No abnormal cerebellar or cerebral enhancement No pituitary macro or microadenoma IMPRESSION: No cerebellar or cerebral metastatic disease Mild bilateral mastoiditis
== END | disposition home or self-care (01) ==
LOC: SMRI 16:21
PROVIDERS: Referring Provider Internal Medicine Hematology & Oncology; Visit Provider Internal Medicine Hematology & Oncology
DX: H70.893 Other mastoiditis and related conditions, bilateral (principal); C61 Malignant neoplasm of prostate
CPT/HCPCS: 70552; A9579

== ENCOUNTER 2025-04-19 11:23 | Outpatient (RCR) | payer MEDICARE, MEDICAID, SELFPAY ==
--- NOTE | 2025-04-19 15:11 | CTCFLWUP_ITS ---
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 12/30/2024 brain MRI is negative for any stroke 12/03/2024 MRI pelvis imaging revealed new retroaortic (17mm), periaortic (13mm), and left common iliac lymph nodes (16mm, 14mm) not present on 2021 scans. Medical History - Facial weakness (right side) - Pre-diabetes - Bladder cancer (high-grade) - Prostate cancer (low-grade, diagnosed in 2013) Surgical History - Bladder removal with prostate removal in 2021 for high-grade bladder cancer - Prostate biopsy in 2013, showing low-grade prostate cancer (Yasmin 6) - Radiation therapy for prostate cancer in 2008 Vital Signs - Blood Pressure: 111 mmHg (systolic) Physical Examination HEENT: Facial weakness noted. Right eye unable to close fully. Left eye watering. Corneal exposure on right side due to incomplete eye closure. Neurological: Mild weakness in left hand observed. Patient able to squeeze fingers bilaterally, but noted to be weaker on left side. Unable to fully close right eye when instructed to close eyes tightly. Laboratory, Imaging, and Diagnostic Test Results - MRI Abdomen (12/03/2024): - No focal liver lesions - Absent gallbladder - No pancreatic mass - No hydronephrosis - 17 mm retroaortic lymph node - 13 mm left lateral periaortic lymph node - MRI Pelvis (12/03/2024): - 16 mm left common iliac lymph node - 14 mm left common iliac lymph node - PET CT scan (10/11/2024): - No current mediastinal hypermetabolic lymphadenopathy - 16 mm left common iliac lymph node - 27 mm left common iliac lymph node - CT scan (February-March 2024): - Left common iliac lymph node identified and biopsied (non-diagnostic) - Previous MRI Abdomen (07/16/2022): - No retroaortic or left lateral periaortic lymph nodes noted - Previous MRI Pelvis (07/16/2022): - No left common iliac lymph nodes noted - Prostate biopsy (2013): - Left lobe: 6 out of 10 positive (low-grade prostate cancer) Medications and Supplements - Baby aspirin Social History - Living Situation: Lives with family (daughter present during visit) - Language: Patient speaks Vietnamese, no associate theatre professor needed Review of Systems HEENT: Positive for watery eye. Neurological: Positive for facial weakness, mild weakness in right-left hand. ONCOLOGY HISTORY:?[facility] Hx? DIAGNOSIS: Malignant neoplasm of prostate [ICD10] C61 High-grade, T1, invasive papillary urothelial carcinoma, non-muscle invasie. S/p TURBT and partial resection (05/22/2022) History of Yasmin score 6 prostatic adenocarcinoma (03/07/2014). S/p radiation therapy to the prostate (04/19/2014 - 06/13/2014) Mr. Torres had 7200 cGy radiation therapy in 40 fractions. No history of cigarette smoking or alcohol abuse. DATE OF DIAGNOSIS: 05/22/2022 STAGE/TNM: Stage 1 [id number] TREATMENT HISTORY: Care?Plan Start?Date Cycle Day Intent Pembrolizumab?alone 09/04/2022 1 21 Palliative HISTORY OF PRESENT ILLNESS: Theodore Torres is a 84-year-old SPA speaking male with history of hypertension has the following oncology history. 04/04/2022: Mr. Torres had urinalysis which showed 3+ hematuria. Cytology showed many malignant cells. 05/06/2022: Patient had cystoscopy. Large papillary left lateral and posterior bladder wall tumor was noted. 05/22/2022: TURBT?again a large tumor was noted in the bladder. A large part of the tumor was resected out. However complete resection was not possible. 07/16/2022: MRI of the abdomen and pelvis with and without contrast? 04/09/2023: Patient had cystectomy done at [facility]. 04/25/2023: Mr. Torres had CT angiogram for shortness of breath. He did not show any pulmonary embolism. However it did show fluid collection adjacent to esophagus versus a paraesophageal lymph node. 08/04/2023: CT scan of the abdomen and pelvis with contrast 09/25/2023: PET/CT scan 10/08/2023: CT scan of the abdomen and pelvis with IV contrast 02/16/2024: CT scan of the chest abdomen and pelvis with IV contrast 02/16/2024: CT scan of the chest abdomen and pelvis with IV contrast 03/11/2024: PET/CT scan 04/13/2024: CT-guided biopsy of the left common iliac lymph node? OTHER MEDICAL HISTORY/CONDITIONS: HTN Hyperlipidemia Prostate cancer- dx 2013 Bladder cancer - 2021 Ureteral dilitation; transuretheral resection of bladder tumor - 05/22/2022 Biopsy bladder tumor - 05/07/2022 Gray cataract surgery - 2018 Cholecyctectomy - 2013 Left rotator cuff repair - 18ys ago Umbilical hernia repair - 2007 Left rotator cuff repair - 18ys ago FAMILY HISTORY: Patient?denies?family?cancer?history. 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 Tobacco?Use:?Denies ETOH?Use:?Denies Drug?Note:?Denies Social History Note:?Lives with and dtr MEDICATIONS: 1. aspirin - 81 mg 1 tab Daily 2. Brilinta - 90 mg 1 tab Twice a Day 3. bumetanide - 0.5 mg 1 tab Daily 4. carvedilol - 3.125 mg 1 tab Twice a Day 5. ezetimibe - 10 mg 1 tab Daily 6. pantoprazole - 40 mg 1 Daily 7. prochlorperazine - 10 mg 1 tab Three times a day?Palabra Meds? Medications Last Reconciled by Farzana Harris MA on 04/19/2025 ALLERGIES: Penicillins; codeine sulfate REVIEW OF SYSTEMS: A complete 14-point review of systems was performed and is negative except as noted in interval history. PHYSICAL EXAMINATION:?CloneBlock PE? VITAL SIGNS: Temperature?99, B/P?120/71, Oxygen?Saturation?95% Weight?160?lbs PAIN: 0 - No pain ECOG Performance Status: 1 - Symptomatic; ambulatory; restricted in strenuous activity GENERAL APPEARANCE: Appears well, in no apparent distress, appropriately interactive. HEENT: Normocephalic, no temporal wasting, normal conjunctiva, no scleral icterus, normal hearing, lips without lesions, neck normal range of motion. CARDIOVASCULAR: Not assessed. PULMONARY: Normal respiratory effort, no respiratory distress or use of accessory muscles, speaking in full sentences, no tachypnea. EXTREMITIES: No pedal edema or cyanosis. SKIN: Normal skin appearance. NEUROLOGIC: Alert and oriented x4. PSHYCHIATRIC: Appropriate affect, mood normal, behavior normal, intact thought and speech. LABORATORY DATA: I have personally reviewed and interpreted each of the patient?s relevant lab tests, abnormal findings are below: Date 12/01/24 12/03/24 ??WHITE?BLOOD?COUNT?(Thou/mm3) 6.6 ? ??RED?BLOOD?COUNT?(Miln/mm3) 4.77 ? ??HEMOGLOBIN?(gm/dl) 13.2?L ? ??HEMATOCRIT?(%) 40.9?L ? ??PLATELET?COUNT?(Thou/mm3) 264 ? ??NEUTROPHILS?%,?AUTO?(%) 51 ? ??LYMPH?%,?AUTO?(%) 37 ? ??NEUTROPHILS,?AUTO?(Thou/mm3) 3.4 ? ??GLUCOSE,RANDOM?(mg/dL) 102 119?H ??BLOOD?UREA?NITROGEN?(mg/dL) 22 22 ??CREATININE?(mg/dL) 1.30 1.30 ??SODIUM?(mmol/L) 140 143 ??POTASSIUM?(mmol/L) 4.7 4.5 ??CHLORIDE?(mmol/L) 104 106 ??CrCl?(CandG)?(ml/min) 44.75 44.75 ??AST/SGOT?(Unit/L) 22 ? ??ALT/SGPT?(Unit/L) 16 ? ??ALKALINE?PHOSPHATASE?(Unit/L) 109 ? ??BILIRUBIN,?TOTAL?(mg/dL) 0.6 ? ??PROTEIN?TOTAL?(gm/dl) 7.1 ? ??ALBUMIN,?SERUM?(gm/dl) 4.3 ? ??GLOBULIN?(gm/dl) 2.8 ? ??ALBUMIN/GLOBULIN?RATIO 1.5 ? ??CALCIUM,?SERUM?(mg/dL) 9.3 9.5 ??CALCIUM?SERUM?(CORRECTED)?(mg/dL) 9.3 ? ??CEA?(O*)?(ng/ml) 2.1 ? ASSESSMENT/PLAN:?Karen Mackay Assessment/Plan? Mr. Torres had robotic radical cystectomy/cystoprostatectomy, bilateral on 04/09/2023. Surgical pathology specimen did not show any residual tumor (ypT0 N0). Benign prostatic hyperplasia was noted. Patient had cystectomy done at [facility] on 04/09/2023. Stage I high-grade, T1, invasive papillary urothelial carcinoma with invasion of lamina propria (Non muscle invasive bladder cancer) (05/22/2022). S/p neoadjuvant pembrolizumab (09/04/2022 - 03/13/2023) MRI of the abdomen and pelvis with and without contrast is negative for lymphadenopathy or extravesicular disease. S/p TURBT and partial resection (05/22/2022) History of Yasmin score 6 prostatic adenocarcinoma (03/07/2014). S/p radiation therapy to the prostate (04/19/2014 - 06/13/2014) Mr. Torres had 7200 cGy radiation therapy in 40 fractions. Patient have small lymph nodes in the pelvis All are too small Will check for [facility] for MRD Repeat CT scan and if lymph nodes enlarges that time we will biopsy them RTC in 4 months with imaging hypertension Theodore Ward, male patient with history of bladder cancer and prostate cancer, presenting with facial weakness and mild right hand weakness. Barrera's palsy MRI of the brain was negative Patient was seen by by neurologist ORDERS: Order # Description [id number] MD Follow Up [id number] Scan + Chest + Abdomen and Pelvis + With W/O Contrast [id number] PSA [id number] Vitamin B-12 + Ferritin + Folic Acid; Serum RETURN TO CLINIC: I reviewed the diagnosis, prognosis, and recommended treatment/procedure options with the patient (and/or their legal retail wireless sales representative), including the potential benefits, risks, side effects and alternative therapies. We also discussed the option of no treatment and the possibility of clinical trial participation, if applicable. All questions were addressed, and they demonstrated understanding. They provided informed consent to proceed with the proposed plan of care. BILLING AND COMPLIANCE: I reviewed external records from providers outside my specialty as summarized above. I spent a total of 50 minutes on this patient?s care on the day of their visit excluding time spent related to any billed procedures. This time includes time spent with the patient as well as time spent documenting in the medical record, reviewing patients records and tests, obtaining history, placing orders, communicating with other healthcare professionals, counseling the patient, family or caregiver, and/or care coordination for the diagnoses above. Electronically Signed by: Rudy Mackay MD T: 3:09 PM CC: Xiang?Debbie? PCP: No Primary/family, Physician Referring: Rudy Mackay This document was completed utilizing speech recognition software. Grammatical errors, random word insertions, pronoun errors, and incomplete sentences are an occasional consequence of this system due to software limitations, ambient noise, and hardware issues. Any formal questions or concerns about the content, text or information contained within the body of this dictation should be directly addressed to the provider for clarification.
== END 2025-05-17 23:59 | disposition home or self-care (01) ==
LOC: SCTC 11:23
PROVIDERS: Referring Provider Internal Medicine Hematology & Oncology; Visit Provider Internal Medicine Hematology & Oncology
DX: Z08 Encounter for follow-up examination after completed treatment for malignant neoplasm (principal); Z85.46 Personal history of malignant neoplasm of prostate; Z85.51 Personal history of malignant neoplasm of bladder; Z90.6 Acquired absence of other parts of urinary tract; Z92.21 Personal history of antineoplastic chemotherapy; Z92.3 Personal history of irradiation; G51.0 Bell's palsy; Z90.79 Acquired absence of other genital organ(s)
CPT/HCPCS: 99212; G0463

== ENCOUNTER → 2025-07-11 | Outpatient (BNVA) | payer MEDICARE, MEDICAID, SELFPAY | END | disposition home or self-care (01) | PROVIDERS: PCP Nurse Practitioner; Referring Provider Nurse Practitioner; Visit Provider Urology | DX: C67.9 Malignant neoplasm of bladder, unspecified (principal); I10 Essential (primary) hypertension; I25.10 Atherosclerotic heart disease of native coronary artery without angina pectoris | CPT/HCPCS: 81003; 99212; G0463 ==